=== PATIENT | male | born 1950 | race Two or more races ===

== ENCOUNTER → 2019-11-25 | Outpatient (CLI) | payer MEDICARE ==
[~2019-11-25] MED LIST: APIX5TAB PO; ATOR40TA78 PO; EMPA25TA PO; FURO20TA3 PO; LISI5TAB7 PO; METF1000 PO; METO-95 PO; SEMA0.25 SC
== END | disposition home or self-care (01) ==
LOC: CFH 06:38
PROVIDERS: ATTEND Internal Medicine Cardiovascular Disease
DX: I82.409 Acute embolism and thrombosis of unspecified deep veins of unspecified lower extremity (principal); R60.9 Edema, unspecified; R07.9 Chest pain, unspecified; M79.604 Pain in right leg

== ENCOUNTER 2019-11-28 07:39 | Outpatient (CLI) | payer MEDICARE ==
[~2019-11-28 07:39] MED LIST changes: +REGADENOSON 0.4 MG/5 ML SYRINGE ONE
== END 2019-11-28 23:59 | disposition home or self-care (01) ==
LOC: CFH 07:39
PROVIDERS: ATTEND Internal Medicine Cardiovascular Disease
DX: I25.9 Chronic ischemic heart disease, unspecified (principal); I82.409 Acute embolism and thrombosis of unspecified deep veins of unspecified lower extremity; R60.9 Edema, unspecified; M79.604 Pain in right leg; R07.9 Chest pain, unspecified
CPT/HCPCS: 78452; 93017; A9502; J2785

== ENCOUNTER 2020-01-29 10:51 | Day surgery (SDC) | payer MEDICARE ==
[~2020-01-29] VITALS: Ht 170.2 cm; Wt 78.0 kg
[~2020-01-29 10:51] MED LIST changes: +DIGO125T85 PO; +DILT30TA27 PO; +FURO40TA6 PO; +INSU100I13 SQ-INSULIN; +POTA20TA6 PO; -REGADENOSON 0.4 MG/5 ML SYRINGE ONE; +SPIR25TA PO
[2020-01-29] MEDS ORDERED: APIXABAN 5 MG TABLET ONE (11:43)
[2020-01-29] MEDS ORDERED: APIXABAN 5 MG TABLET PO ONE (11:46)
[2020-01-29] MEDS ORDERED: PLEASE ENTER HEIGHT AND WEIGHT MC SCH (12:00)
[2020-01-29 12:02] LABS: ANION GAP 7 mmol/L (5-15); CALCIUM 8.8 mg/dL (8.5-10.1); CHLORIDE 103 mmol/L (98-107)
[2020-01-29] MEDS ORDERED: PROPOFOL 10 MG/ML, 20ML ONE (13:55)
[2020-01-29] MEDS ORDERED: SODIUM CHLORIDE FLUSH 10ML SYR IVF SCH (21:00)
== END 2020-01-29 15:00 | disposition home or self-care (01) ==
LOC: CACL 10:51
PROVIDERS: ATTEND Internal Medicine Cardiovascular Disease
DX: I48.91 Unspecified atrial fibrillation (principal); I25.5 Ischemic cardiomyopathy; I34.0 Nonrheumatic mitral (valve) insufficiency; I25.10 Atherosclerotic heart disease of native coronary artery without angina pectoris; I11.0 Hypertensive heart disease with heart failure; I50.9 Heart failure, unspecified; E11.9 Type 2 diabetes mellitus without complications; E78.5 Hyperlipidemia, unspecified; R09.02 Hypoxemia; E66.3 Overweight; Z68.26 Body mass index [BMI] 26.0-26.9, adult; Z79.01 Long term (current) use of anticoagulants; Z79.4 Long term (current) use of insulin; Z79.899 Other long term (current) drug therapy
CPT/HCPCS: 36415; 80048; 80162; 92960; J2704

== ENCOUNTER → 2020-05-13 | Outpatient (CLI) | payer MEDICARE | END | disposition home or self-care (01) | LOC: CVU 12:49 | PROVIDERS: ATTEND Internal Medicine Cardiovascular Disease | DX: I70.202 Unspecified atherosclerosis of native arteries of extremities, left leg (principal) | CPT/HCPCS: 93922; 93926 ==

== ENCOUNTER → 2020-06-29 | Outpatient (CLI) | payer MEDICARE | END | disposition home or self-care (01) | LOC: CVU 06:42 | PROVIDERS: ATTEND Nurse Practitioner Family | DX: I34.0 Nonrheumatic mitral (valve) insufficiency (principal); I11.9 Hypertensive heart disease without heart failure | CPT/HCPCS: 93306 ==

== ENCOUNTER 2020-08-30 09:52 | Outpatient (CLI) | payer MEDICARE ==
[2020-09-03] MEDS ORDERED: FLUT100D2 INH (06:57)
== END 2020-08-30 23:59 | disposition home or self-care (01) ==
LOC: STAR 09:52
PROVIDERS: ATTEND Family Medicine
DX: Z20.822 Contact with and (suspected) exposure to COVID-19 (principal)
CPT/HCPCS: 87635

== ENCOUNTER 2020-09-03 06:01 | Observation (INO) | payer MEDICARE ==
[~2020-09-03] VITALS: Ht 170.2 cm; Wt 79.2 kg
[2020-09-03] MEDS ORDERED: SODIUM CHLORIDE 0.9% 1,000 ML IV SCH (06:30)
[2020-09-03 06:40] VITALS: BP 105/79
[2020-09-03 06:57] LABS: BASOPHILS % (AUTO) 1 % (0-1); EOSINOPHILS % (AUTO) 1 % (1-7); LYMPHOCYTES % (AUTO) 32 % (22-44); MEAN CORPUSCULAR HEMOGLOBIN 29.3 pg (27.5-34.5); MEAN CORPUSCULAR HGB CONC 33.9 g/dL (33.2-36.2); MEAN PLATELET VOLUME 7.5 fL (7.4-10.4); MONOCYTES % (AUTO) 8 % (2-9); NEUTROPHILS % (AUTO) 58 % (42-75); PLATELET COUNT 232 x10^3/uL (130-400); RED BLOOD COUNT 5.22 x10^6/uL (4.38-5.82); RED CELL DISTRIBUTION WIDTH 15.1 % (9.4-14.8)
[2020-09-03] MEDS ORDERED: FLUT100D INH (06:57)
[2020-09-03] MEDS ORDERED: METO-95 PO (06:57)
[2020-09-03] MEDS ORDERED: LOSA25TA25 PO (06:57)
[2020-09-03] MEDS ORDERED: DIGO125T85 PO (06:57)
[2020-09-03] MEDS ORDERED: ATOR40TA78 PO (06:57)
[2020-09-03] MEDS ORDERED: INSU100V8 SQ (06:57)
[2020-09-03] MEDS ORDERED: SPIR25TA5 PO (06:57)
[2020-09-03] MEDS ORDERED: SEMA0.25 INJ (06:57)
[2020-09-03] MEDS ORDERED: APIX5TAB PO (06:57)
[2020-09-03] MEDS ORDERED: DILT30TA33 PO (06:57)
[2020-09-03] MEDS ORDERED: FURO-93 PO (06:57)
[2020-09-03] MEDS ORDERED: ALBU8.5H8 IH (06:57)
[2020-09-03 07:01] LABS: MD NO
[2020-09-03 07:09] LABS: ANION GAP 11 mmol/L (5-15); CALCIUM 8.9 mg/dL (8.5-10.1); CHLORIDE 106 mmol/L (98-107); CREATININE 0.82 mg/dL (0.7-1.3)
[2020-09-03] MEDS ORDERED: FENTANYL PF 100 MCG/2ML ONE (07:56)
[2020-09-03] MEDS ORDERED: CEFAZOLIN PMX 1GM/50ML 50 ML ONE (07:57)
[2020-09-03] MEDS ORDERED: MIDAZOLAM 1 MG/ML, 5ML ONE (07:57)
[2020-09-03] MEDS ORDERED: CEFAZOLIN 1,000 MG ONE (07:57)
[2020-09-03] MEDS ORDERED: LIDOCAINE 2%, 20ML ONE ×2 (07:57→08:24)
[2020-09-03] MEDS ORDERED: ACETAMINOPHEN 325 MG TABLET PO PRN (09:30)
[2020-09-03] MEDS ORDERED: CEFAZOLIN PMX 1GM/50ML 50 ML IVPB SCH (09:30)
[2020-09-03] MEDS ORDERED: HOLD MEDICATION MC PRN (09:30)
[2020-09-03] MEDS ORDERED: ONDANSETRON 2MG/ML, 2ML IV PRN (09:30)
[2020-09-03] MEDS ORDERED: [UNRECOGNIZED DRUG - REMARK] SC SCH (09:30)
[2020-09-03] MEDS ORDERED: [UNRECOGNIZED DRUG - REMARK] SQ SCH (09:30)
[2020-09-03 11:36] VITALS: BP 122/86
[2020-09-03 13:17] VITALS: BP 135/95
[2020-09-03] MEDS: INSULIN LISPRO 100 UNITS/ML, PEN SQ-INSULIN SCH ×2 (17:48→21:50)
[2020-09-03] MEDS: metFORMIN 500 MG TABLET PO SCH (17:49)
[2020-09-03 20:00] VITALS: BP 137/89
[2020-09-03] MEDS ORDERED: DILTIAZEM 30 MG TABLET PO SCH (21:00)
[2020-09-03] MEDS ORDERED: ATORVASTATIN 40 MG TABLET PO SCH (21:00)
[2020-09-03] MEDS ORDERED: metFORMIN 500 MG TABLET PO SCH (21:00)
[2020-09-03] MEDS: [UNRECOGNIZED DRUG - REMARK] INH SCH (21:00)
[2020-09-03] MEDS: METOPROLOL SUCCINATE 100 MG TAB.ER.24H PO SCH (21:36)
[2020-09-03] MEDS: SODIUM CHLORIDE FLUSH 10ML SYR IVF SCH (21:36)
[2020-09-03] MEDS: SPIRONOLACTONE 25 MG TABLET PO SCH (21:36)
[2020-09-04 01:50] VITALS: BP 120/75
[2020-09-04] MEDS: CEFAZOLIN PMX 1GM/50ML 50 ML IVPB SCH ×2 (05:23→11:51)
[2020-09-04 07:42] VITALS: BP 123/77
[2020-09-04] MEDS: [UNRECOGNIZED DRUG - REMARK] INH SCH (09:00)
[2020-09-04] MEDS ORDERED: DIGOXIN 0.125 MG TABLET PO SCH (09:00)
[2020-09-04] MEDS ORDERED: FUROSEMIDE 20 MG TABLET PO SCH (09:00)
[2020-09-04] MEDS ORDERED: [UNRECOGNIZED DRUG - REMARK] PO SCH (09:00)
[2020-09-04] MEDS ORDERED: LOSARTAN 25MG TABLET PO SCH (09:00)
[2020-09-04] MEDS ORDERED: ACET325T26 PO (09:24)
[2020-09-04] MEDS: INSULIN LISPRO 100 UNITS/ML, PEN SQ-INSULIN SCH ×2 (09:49→11:51)
[2020-09-04] MEDS: metFORMIN 500 MG TABLET PO SCH (09:50)
[2020-09-04] MEDS: METOPROLOL SUCCINATE 100 MG TAB.ER.24H PO SCH (09:50)
[2020-09-04] MEDS: SPIRONOLACTONE 25 MG TABLET PO SCH (09:50)
[2020-09-04] MEDS: SODIUM CHLORIDE FLUSH 10ML SYR IVF SCH (09:51)
[2020-09-04 12:20] VITALS: BP 123/79
== END 2020-09-04 13:07 | disposition home or self-care (01) ==
LOC: CACL 06:01 → 5SO 09:06 → CACL 09:42 → DCLOUNGE 09-04 12:58
PROVIDERS: ADMIT Internal Medicine Cardiovascular Disease; ATTEND Internal Medicine Cardiovascular Disease
DX: I42.9 Cardiomyopathy, unspecified (principal); I48.91 Unspecified atrial fibrillation; I11.0 Hypertensive heart disease with heart failure; I50.9 Heart failure, unspecified; I49.01 Ventricular fibrillation; Z79.01 Long term (current) use of anticoagulants; Z79.899 Other long term (current) drug therapy
CPT/HCPCS: 33249; 36415; 71045; 71046; 80048; 82962; 85025; 93641; 96365; 96366; 99156; 99157; C1722; C1892; C1895; G0378; J0690; J1815; J2250; J3010; J3490